=== PATIENT | male | born 2000 | race Two or more races ===

== ENCOUNTER 2024-09-24 12:42 | Emergency (ER) | payer MEDICAID, SELFPAY ==
[2024-09-24 12:42] VITALS: BMI 27.3
[2024-09-24 12:53] VITALS: BP 112/73; PULSE 71; RESP 18; TEMP 36.8; O2SAT 96
--- NOTE | 2024-09-24 12:56 | XR_ITS ---
Examination: CT lumbar spine, without contrast. 2-D sagittal reconstructions. 2-D coronal reconstructions. 3-D reconstructions. Date and time of exam:September 24, 2024 1314 hrs. Indications: Patient fell 3 days ago with injury to lower back, lower back pain CTDI: vol (mGy):22.9 DLP: (mGycm):723 Technique: Multiple 1.25 mm axial sections of the lumbar spine without intravenous contrast have been obtained. 2-D sagittal and coronal reconstructions have been obtained. 3-D reconstructions have been obtained. Low dose protocols were performed. One or more of the following dose reduction techniques were used; automated exposure control, adjustment of the mA and/or KV according to patient size, use of iterative reconstruction technique. Findings: Adequate alignment lumbar vertebral bodies No lumbar vertebral body compression fracture Lumbar pedicles and laminae as well as transverse processes appear intact L4-L5 3 mm central lumbar disc bulge L5-S1. Large extruded 16mm left paracentral disc displacing the left S1 nerve root and severely indenting the thecal sac Impression: L5-S1 very large 16 mm left paracentral disc extrusion displacing the left S1 nerve root and severely indenting the thecal sac
--- NOTE | 2024-09-24 12:56 | XR_ITS ---
Examination: CT pelvis without intravenous contrast. 2-D sagittal and coronal reconstructions. Date and time of exam:25 1359 hrs. Indications: Injury to the left hip 3 days ago, left hip pain CTDI: vol (mGy) :7.12 DLP: (mGycm) : 193 Technique: Multiple 3 mm axial sections of the pelvis have been obtained with the 64 slice high resolution scanner. 2-D sagittal and coronal reconstructions. Low dose protocols were performed. One or more of the following dose reduction techniques were used; automated exposure control, adjustment of the mA and/or KV according to patient size, use of iterative reconstruction technique. Findings: No right or left hip fracture No hip dislocation Bones of the pelvis intact Normal appendix No pelvic hematoma Urinary bladder intact Impression: No acute hip or pelvic fracture Recommend 1-2 day follow-up AP pelvis as clinically warranted
[2024-09-24] MEDS: KETOROLAC INJ 30 MG/ML VIAL IM (13:20)
[2024-09-24] MEDS: HYDROcodone/APAP 5/325 TABLET 1 TAB PO (14:13)
[2024-09-24] MEDS: DEXAMETHASONE SOD PHOS INJ 10 MG/ML VIAL PO (14:13)
[2024-09-24 14:16] VITALS: BP 128/62; PULSE 68; RESP 18; TEMP 36.7; O2SAT 99
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
== END 2024-09-24 14:18 | disposition home or self-care (01) ==
PROVIDERS: Emergency Provider Family Medicine
DX: M51.360 Other intervertebral disc degeneration, lumbar region with discogenic back pain only (principal); S39.92XA Unspecified injury of lower back, initial encounter; S79.912A Unspecified injury of left hip, initial encounter; X58.XXXA Exposure to other specified factors, initial encounter; Y93.18 Activity, surfing, windsurfing and boogie boarding
CPT/HCPCS: 72131; 72192; 96372; 99284; J1100; J1885; A9270